=== PATIENT | male | born 1965 | race Caucasian/White ===

== ENCOUNTER 2018-06-06 16:54 | Emergency (ER) | payer MEDICAID ==
[~2018-06-06] VITALS: Ht 177.8 cm; Wt 94.1 kg
[2018-06-06 17:01] VITALS: BP 143/88
[2018-06-06] MEDS ORDERED: TETanus/Pertussis (Acell)/Diphther VAC/PF (Tdap-Adult) 0.5ml syringe IM ONE (18:10)
[2018-06-06] MEDS ORDERED: SULF1TAB49 PO (18:11)
[2018-06-06] MEDS ORDERED: CEPH-572 PO (18:11)
== END 2018-06-06 18:37 | disposition home or self-care (01) ==
LOC: ER 16:55
DX: L02.511 Cutaneous abscess of right hand (principal); L98.499 Non-pressure chronic ulcer of skin of other sites with unspecified severity; Z56.0 Unemployment, unspecified; Z79.2 Long term (current) use of antibiotics
CPT/HCPCS: 73120; 90471; 90715; 99284; A6255